=== PATIENT | female | born 2005 | race Caucasian/White ===

== ENCOUNTER 2025-05-31 15:25 | Emergency (ER) | payer MEDICAID ==
[~2025-05-31] VITALS: Ht 154.9 cm; Wt 50.0 kg
[2025-05-31 15:27] VITALS: O2SAT 100
[2025-05-31] MEDS ORDERED: NAPR-681 MT (18:54)
[2025-05-31 19:42] VITALS: BP 111/68; PULSE 59; RESP 14; TEMP 36.9; O2SAT 99
== END 2025-05-31 19:49 | disposition home or self-care (01) ==
LOC: ER 15:25
DX: S00.83XA Contusion of other part of head, initial encounter (principal); V03.10XA Pedestrian on foot injured in collision with car, pick-up truck or van in traffic accident, initial encounter; Y93.89 Activity, other specified; Y92.481 Parking lot as the place of occurrence of the external cause; Y99.8 Other external cause status
CPT/HCPCS: 99284